=== PATIENT | male | born 1955 | race Caucasian/White ===

== ENCOUNTER 2020-12-22 07:33 | Day surgery (SDC) | payer MEDICARE ==
[~2020-12-22] VITALS: Ht 172.7 cm; Wt 79.1 kg
[2020-12-22 08:04] VITALS: BP 121/75
[2020-12-22] MEDS ORDERED: OXYC10TA47 PO (08:04)
[2020-12-22] MEDS ORDERED: SODIUM CHLORIDE 0.9% 1,000 ML IV SCH (08:30)
[2020-12-22 08:35] LABS: INTERNATIONAL NORMALIZED RATIO 1.1 (0.93-1.1); PROTHROMBIN TIME 11.7 Seconds (9.6-11.5)
[2020-12-22] MEDS ORDERED: FLUMAZENIL 0.1 MG/1 ML, 5ML ONE (08:56)
[2020-12-22] MEDS ORDERED: MIDAZOLAM 1 MG/ML, 5ML ONE (08:56)
[2020-12-22] MEDS ORDERED: FENTANYL PF 100 MCG/2ML ONE (08:56)
[2020-12-22] MEDS ORDERED: NALOXONE 1 MG/ML, 2ML ONE (08:56)
== END 2020-12-22 10:25 | disposition home or self-care (01) ==
LOC: RAD 07:33
PROVIDERS: ATTEND Internal Medicine Hematology & Oncology
DX: C43.59 Malignant melanoma of other part of trunk (principal); C22.8 Malignant neoplasm of liver, primary, unspecified as to type; Z79.01 Long term (current) use of anticoagulants; Z79.891 Long term (current) use of opiate analgesic; Z79.899 Other long term (current) drug therapy; Z87.891 Personal history of nicotine dependence; Z90.49 Acquired absence of other specified parts of digestive tract; Z80.1 Family history of malignant neoplasm of trachea, bronchus and lung; Z80.8 Family history of malignant neoplasm of other organs or systems
CPT/HCPCS: 36415; 47000; 76942; 85610; 88307; 99156; 99157; J2250; J3010; J7030; J2310

== ENCOUNTER 2020-12-27 07:13 | Outpatient (CLI) | payer MEDICARE ==
[~2020-12-27 07:13] MED LIST: OXYC10TA47 PO
== END 2020-12-27 23:59 | disposition home or self-care (01) ==
LOC: ROC 07:13
PROVIDERS: ATTEND Radiology Radiation Oncology
DX: C79.31 Secondary malignant neoplasm of brain (principal); Z79.01 Long term (current) use of anticoagulants; Z79.891 Long term (current) use of opiate analgesic; Z79.899 Other long term (current) drug therapy; Z87.891 Personal history of nicotine dependence
CPT/HCPCS: 99214; G0463

== ENCOUNTER → 2021-01-09 | Outpatient (CLI) | payer MEDICARE ==
[~2021-01-09] MED LIST changes: +GADOTERATE 10 MMOL/20ML SYR ONE
== END | disposition home or self-care (01) ==
LOC: RAD 13:47
PROVIDERS: ATTEND Radiology Radiation Oncology
DX: C79.31 Secondary malignant neoplasm of brain (principal)
CPT/HCPCS: 70553; A9575

== ENCOUNTER 2021-02-19 08:08 | Outpatient (CLI) | payer MEDICARE ==
[~2021-02-19 08:08] MED LIST changes: +CIPR750T PO; +DEXA4TAB66 PO; -GADOTERATE 10 MMOL/20ML SYR ONE; +LEVE500T53 PO; +TEMA15CA PO
[2021-02-19] MEDS ORDERED: TEMA15CA PO (10:49)
[2021-02-20] MEDS ORDERED: ENCO75CA PO (23:43)
[2021-02-20] MEDS ORDERED: BINI15TA PO (23:43)
== END 2021-02-19 23:59 | disposition home or self-care (01) ==
LOC: ROC 08:08
PROVIDERS: ATTEND Radiology Radiation Oncology
DX: C79.31 Secondary malignant neoplasm of brain (principal); J96.10 Chronic respiratory failure, unspecified whether with hypoxia or hypercapnia; G89.29 Other chronic pain; Z79.891 Long term (current) use of opiate analgesic; Z79.01 Long term (current) use of anticoagulants; Z85.820 Personal history of malignant melanoma of skin; Z79.899 Other long term (current) drug therapy; Z87.891 Personal history of nicotine dependence
CPT/HCPCS: 99213; G0463

== ENCOUNTER 2021-02-20 22:46 | Emergency (ER) | payer MEDICARE ==
[~2021-02-20] VITALS: Ht 172.7 cm; Wt 65.0 kg
--- NOTE | 2021-02-20 23:02 | NUR ---
THIS IS A 65 YO M W/ C/O PAINFUL TREMORS, WORSE IN LT LEG STARTING TODAY. PT ALSO HAS NEW ONSET PAIN W/ URINATION STARTING TODAY. PT AWAKE AND ALERT, ANSWERING QUESTIONS APPROPRIATELY. PT STATES LIMITED CONTROL FOR LT SIDE OF BODY. PT RESTING ON GURNEY W/ CALL LIGHT IN REACH AND SIDE RAILS UPX2. ALPHONSE FULTON. ERP AT BEDSIDE.
--- NOTE | 2021-02-20 23:03 | NUR ---
SEIZURE PRECAUTIONS IN PLACE.
[2021-02-20] MEDS ORDERED: LORazepam 2 MG/ML, 1ML ONE (23:06)
[2021-02-20 23:16] LABS: BASOPHILS % (AUTO) 0 % (0-1); EOSINOPHILS % (AUTO) 1 % (1-7); LYMPHOCYTES % (AUTO) 38 % (22-44); MEAN CORPUSCULAR HEMOGLOBIN 27.8 pg (27.5-34.5); MEAN CORPUSCULAR HGB CONC 33.4 g/dL (33.2-36.2); MEAN PLATELET VOLUME 8.3 fL (7.4-10.4); MONOCYTES % (AUTO) 10 % (2-9); NEUTROPHILS % (AUTO) 51 % (42-75); PLATELET COUNT 144 x10^3/uL (130-400); RED BLOOD COUNT 4.75 x10^6/uL (4.38-5.82); RED CELL DISTRIBUTION WIDTH 19.4 % (9.4-14.8)
[2021-02-20 23:26] LABS: ALBUMIN 3.4 g/dL (3.4-5.0); ANION GAP 6 mmol/L (5-15); CALCIUM 8.9 mg/dL (8.5-10.1); CHLORIDE 107 mmol/L (98-107); CREATININE 0.75 mg/dL (0.7-1.3)
[2021-02-20] MEDS ORDERED: LORazepam 2 MG/ML, 1ML IVPush ONE (23:30)
[2021-02-20] MEDS ORDERED: SODIUM CHLORIDE 0.9% 1,000ML IVBOLUS ONE (23:30)
[2021-02-20] MEDS ORDERED: SODIUM CHLORIDE FLUSH 10ML SYR IVF ONE (23:30)
--- NOTE | 2021-02-20 23:30 | NUR ---
URINE COLLECTED AND SENT TO LAB.
[2021-02-20 23:36] LABS: MICROSCOPIC NOT IND
[2021-02-20] MEDS ORDERED: BINI15TA PO (23:43)
[2021-02-20] MEDS ORDERED: ENCO75CA PO (23:43)
--- NOTE | 2021-02-20 23:47 | NUR ---
PT MEDICATED PER EMAR. TAKEN TO CT.
[2021-02-21] MEDS ORDERED: LORazepam 2 MG/ML, 1ML IVPush ONE
--- NOTE | 2021-02-21 00:35 | NUR ---
PT SLEEPING ON GURNEY W/ SIDE RAILS UPX2 AND FAMILY AT BEDSIDE. VSS, NADN. AWAITING CT READ.
--- NOTE | 2021-02-21 01:03 | NUR ---
ALL TESTS RESULTED. PT IS UP FOR RECHECK AT THIS TIME.
--- NOTE | 2021-02-21 01:15 | NUR ---
ERP AT BEDSIDE.
[2021-02-21] MEDS ORDERED: LEVETIRACETAM 1,000 MG in SODIUM CHLORIDE 0.9% 100 ML IV ONE (01:30)
[2021-02-21] MEDS ORDERED: DEXAMETHASONE 4 MG/ML, 1ML IVPush ONE (01:30)
[2021-02-21] MEDS ORDERED: DEXAMETHASONE 4 MG/ML, 5ML ONE (01:34)
--- NOTE | 2021-02-21 01:38 | NUR ---
MED TAMEKA FROM PHARMACY.
[2021-02-21 01:46] VITALS: BP 107/72
--- NOTE | 2021-02-21 01:50 | NUR ---
PT SLEEPING ON GURNEY W/ FAMILY AT BEDSIDE. KIRSTIN, ALPHONSE.
--- NOTE | 2021-02-21 02:53 | NUR ---
LATE ENTRY: PT AND FAMILY VERBALIZED UNDERSTANDING OF DC INSTRUCTIONS. WHEELED TO FAMILY VEHICLE PER FAMILY REQUEST. RESP EVEN AND UNLABORED, ALPHONSE.
== END 2021-02-21 02:55 | disposition home or self-care (01) ==
LOC: ED 23:16
DX: G40.109 Localization-related (focal) (partial) symptomatic epilepsy and epileptic syndromes with simple partial seizures, not intractable, without status epilepticus (principal); C79.89 Secondary malignant neoplasm of other specified sites; G93.6 Cerebral edema
CPT/HCPCS: 36415; 70450; 80048; 81003; 82040; 85025; 96361; 96365; 96375; 96376; 99284; J1100; J1953; J2060; J7030

== ENCOUNTER 2021-02-22 13:34 | Outpatient (CLI) | payer MEDICARE ==
[~2021-02-22 13:34] MED LIST changes: +BINI15TA PO; +ENCO75CA PO
[2021-02-22] MEDS ORDERED: GADOTERATE 7.5 MMOL/15ML SYR ONE (15:15)
[2021-02-22] MEDS ORDERED: GADOTERATE 10 MMOL/20ML SYR ONE (17:25)
== END 2021-02-22 23:59 | disposition home or self-care (01) ==
LOC: CFH 13:34
PROVIDERS: ATTEND Radiology Radiation Oncology
DX: C79.31 Secondary malignant neoplasm of brain (principal); G93.89 Other specified disorders of brain
CPT/HCPCS: 70553; A9575

== ENCOUNTER 2021-02-26 10:09 | Outpatient (CLI) | payer MEDICARE | END 2021-02-26 23:59 | disposition home or self-care (01) | LOC: ROC 10:09 | PROVIDERS: ATTEND Radiology Radiation Oncology | DX: Z08 Encounter for follow-up examination after completed treatment for malignant neoplasm (principal); Z85.841 Personal history of malignant neoplasm of brain; J96.11 Chronic respiratory failure with hypoxia; G89.29 Other chronic pain; E87.1 Hypo-osmolality and hyponatremia; E83.51 Hypocalcemia; Z79.01 Long term (current) use of anticoagulants; Z79.891 Long term (current) use of opiate analgesic; Z79.899 Other long term (current) drug therapy; Z87.891 Personal history of nicotine dependence | CPT/HCPCS: 99212; G0463 ==

== ENCOUNTER → 2021-03-20 | Outpatient (CLI) | payer MEDICARE | END | disposition home or self-care (01) | LOC: ROC 07:29 | PROVIDERS: ATTEND Radiology Radiation Oncology | DX: Z08 Encounter for follow-up examination after completed treatment for malignant neoplasm (principal); Z85.841 Personal history of malignant neoplasm of brain; J96.11 Chronic respiratory failure with hypoxia; E87.1 Hypo-osmolality and hyponatremia; E83.51 Hypocalcemia; G89.29 Other chronic pain; I25.10 Atherosclerotic heart disease of native coronary artery without angina pectoris; Z79.01 Long term (current) use of anticoagulants; Z79.891 Long term (current) use of opiate analgesic; Z79.899 Other long term (current) drug therapy; Z87.891 Personal history of nicotine dependence | CPT/HCPCS: 99212; G0463 ==